=== PATIENT | female | born 1950 | race Caucasian/White ===

== ENCOUNTER 2017-01-09 06:05 | Inpatient (IN) | payer MEDICARE, BC ==
--- NOTE | 2017-01-05 18:28 | HP ---
HISTORY AND PHYSICAL: DATE OF SURGERY: 01/09/17 ATTENDING SURGEON: Dr. Godwin (DICTATED BY CARMEN HATCH) PROCEDURE: Left total hip arthroplasty. CHIEF COMPLAINT: Left hip pain. HISTORY OF PRESENT ILLNESS: Ms. Sherwood is a 66-year-old female with complaints of left hip knee pain secondary to advanced osteoarthritis. She has failed conservative management and has elected to proceed with a left total hip arthroplasty, which is scheduled for 01/09/[address] Godwin. PAST MEDICAL HISTORY: Diabetes and hypertension. PAST SURGICAL HISTORY: 1. Hernia repair. 2. Tonsillectomy. 3. Adenoidectomy. 4. [place] teeth extraction. 5. ORIF of the right ankle. 6. Left breast biopsy. 7. Cataract surgery. CURRENT MEDICATIONS: 1. Lexapro 10 mg once a day. 2. Atenolol 25 mg once a day. 3. Singulair 5 mg once a day. 4. Metformin 500 mg twice a day. ALLERGIES: Questionable LATEX allergy. FAMILY HISTORY: Heart disease and AFib. SOCIAL HISTORY: A 66-year-old female who lives with her parent. She is retired. She does not smoke, use drugs, or alcohol. REVIEW OF SYSTEMS: A complete 14-point review of systems was reviewed with the patient. It was positive for diabetes. PHYSICAL EXAMINATION GENERAL: She is well developed, well nourished, in no acute distress. VITAL SIGNS: She stands 5 feet 3 inches tall, weighs 185 pounds. Her blood pressure is 132/78. Her heart rate is 64. HEENT: Normocephalic, atraumatic. NECK: Supple. No palpable lymph nodes. PULMONARY: The lungs are clear to auscultation. CARDIO: Regular rate and rhythm. Strong S1, S2. ABDOMEN: Soft, nontender, and nondistended. MUSCULOSKELETAL: Left lower extremity, the skin is intact. There is no open wounds or abrasions. Decreased range of motion with internal and external rotation of the left hip. She walks with an antalgic type gait favoring the left leg. Her lower extremity muscle group strengths are intact at 5/5. She has 2+ dorsalis pedis pulses and intact sensation. NEUROLOGICAL: Alert and oriented x3. Cranial nerves II through XII are intact. ASSESSMENT AND PLAN: Ms. Sherwood is a 66-year-old female with complaints of left hip pain secondary to advanced osteoarthritis. She has failed conservative management and has elected to proceed with a left total hip arthroplasty, which is scheduled for 01/09/17. Coumadin, Percocet, and Colace were sent to her pharmacy for postoperative pain control and DVT prophylaxis. She will follow up with Dr. Godwin in 2 weeks after the surgery. CARMEN HATCH [id number]/[facility] #: [id number] MIGUEL
[~2017-01-09 06:05] MED LIST: Buffered Lidocaine 0.9% SYRIN* 5 ML/SYR SYRINGE INTRADERM ONE; Famotidine IV* 10 MG/ML 2 ML (20 mg) IV ONE
[2017-01-09] MEDS ORDERED: Famotidine IV* 10 MG/ML 2 ML (20 mg) ONE (06:08)
[2017-01-09] MEDS ORDERED: ceFAZolin 2 GM PREMIX(*) 2 GM/50 ML BAG IVPB ONE (06:08)
[2017-01-09] MEDS ORDERED: Buffered Lidocaine 0.9% SYRIN* 5 ML/SYR SYRINGE ONE (06:08)
[2017-01-09] MEDS ORDERED: fentaNYL* 50 MCG/ML 2 ML VIAL (100 MCG VIAL) ONE ×2 (07:05→07:57)
[2017-01-09] MEDS ORDERED: Ondansetron INJ* 2 MG/ML VIAL ONE (07:05)
[2017-01-09] MEDS ORDERED: KETAMINE HCL* 50 MG/ML 10 ML VIAL ONE (07:05)
[2017-01-09] MEDS ORDERED: Ketorolac INJ* 30 MG/ML 1 ML VIAL ONE (07:05)
[2017-01-09] MEDS ORDERED: Lidocaine 2% PF * 5 ML VIAL ONE (07:05)
[2017-01-09] MEDS ORDERED: Dexamethasone IV* 4 MG/ML 1 ML (4 MG) ONE (07:05)
[2017-01-09] MEDS ORDERED: Propofol* 10 MG/ML 20 ML BTL IV PUSH ONE (07:05)
[2017-01-09] MEDS ORDERED: Midazolam* 1 MG/ML 5 ML VIAL (5 MG) ONE (07:05)
[2017-01-09] MEDS ORDERED: Cisatracurium* 2 MG/ML MDV 5 ML ONE (07:19)
[2017-01-09] MEDS ORDERED: Bupivacaine 0.5% SDV PF* 30 ML VIAL ONE (07:27)
[2017-01-09] MEDS ORDERED: EPHEDrine (Pressors)* 50 MG/ML VIAL ONE (07:57)
[2017-01-09] MEDS ORDERED: HYDROmorphone* 1 MG/ML 1 ML SYR IV PRN (08:36)
[2017-01-09] MEDS ORDERED: fentaNYL* 50 MCG/ML 2 ML VIAL (100 MCG VIAL) IV PRN (08:36)
[2017-01-09] MEDS ORDERED: Levalbuterol 0.63MG/3ML NEB INH PRN (08:36)
[2017-01-09] MEDS ORDERED: Ondansetron INJ* 2 MG/ML VIAL IV PRN ×2 (08:36→10:08)
[2017-01-09] MEDS ORDERED: DiMENhydriNATE IV* 50 MG/ML VIAL IV PUSH PRN (08:36)
[2017-01-09] MEDS ORDERED: HYDROmorphone* 1 MG/ML 1 ML SYR ONE (09:04)
--- NOTE | 2017-01-09 09:29 | RAD ---
Indication: Left hip replacement. Single view of the pelvis and left hip demonstrates left hip replacement in satisfactory position. IMPRESSION: Left hip replacement in satisfactory position.
[2017-01-09] MEDS ORDERED: Magnesium Hydroxide LIQ* 30 ML UDC PO PRN (10:08)
[2017-01-09] MEDS ORDERED: Acetaminophen TAB* 325 MG PO PRN (10:08)
[2017-01-09] MEDS ORDERED: Morphine INJ* 2 MG/ML 1 ML SYRINGE IV PRN (10:08)
[2017-01-09] MEDS ORDERED: diPHENhydraMINE IV* 50 MG/ML 1 ml VIAL (BENADRYL) IV PRN (10:08)
[2017-01-09] MEDS ORDERED: Ondansetron TAB* 4 MG PO PRN (10:08)
[2017-01-09] MEDS ORDERED: Polyethylene Glycol 3350* 17 GM PACKET PO PRN (10:08)
[2017-01-09] MEDS ORDERED: Bisacodyl SUPP* 10 MG SUPP PR PRN (10:08)
[2017-01-09] MEDS ORDERED: oxyCODONE TAB* 5 MG TAB PO PRN (10:08)
[2017-01-09] MEDS ORDERED: Dextrose 50% Syringe 50 ML* 25 GM/50 ML SYRINGE IV PUSH PRN (10:34)
--- NOTE | 2017-01-09 10:40 | CONSULT ---
Subjective Date of Service: 01/09/17 Interval History: 66 yo F with hx of HTN, DM s/p L ITZEL. Patient seen in PACU, still a bit drowsy from medications/anesthesia but says she is comfortable. No pain presently, no SOB. Reports no ongoing problems prior to her surgery aside from the hip pain. She reports she has been off of Metformin for almost a month because of GI side effects. Says she has been following her BGs at home while off of the medication. Family History: Findings - F - Afib Social History: Findings - No hx of tobacco abuse, no EtOH or drug use Past Medical History: Findings - HTN, DM, allergies Review of Systems - Measurements Intake and Output: Intake and Output Last 24 Hours 01/07/17 01/08/17 01/09/17 01/10/17 06:59 06:59 06:59 06:59 Intake Total 2350 Balance 2350 Intake: IV Fluids 2350 LR 2300 NS 50ML, Cefazolin 2G 50 - Review of Systems Constitutional Symptoms: Negative: Fever Dermatology: Positive: Normal HEENT: Positive: Normal Eyes: Positive: Normal Thyroid: Positive: Normal Pulmonary: Positive: Normal Cardiology: Positive: Normal Gastroenterology: Positive: Normal Genital - Urinary: Positive: Normal Musculoskeletal: Positive: Joint Pain, Joint Stiffness Endocrinology: Positive: Normal Neurology: Positive: Normal Psychiatry: Positive: Normal Objective Active Medications: Acetaminophen (Tylenol Tab*) 650 mg PO Q4H PRN Atenolol (Tenormin Tab*) 25 mg PO QAM [facility] Bisacodyl (Dulcolax Supp*) 10 mg VT DAILY PRN Dimenhydrinate (Dramamine Iv*) 25 mg IV PUSH ONCE PRN Diphenhydramine HCl (Benadryl Iv*) 12.5 mg IV Q6H PRN Docusate Sodium (Colace Cap*) 100 mg PO BID [facility] Enoxaparin Sodium (Lovenox(*)) 30 mg SUBCUT Q24H [facility] Escitalopram Oxalate (Lexapro (Nf)) 10 mg PO BID [facility] Famotidine (Pepcid Iv*) 20 mg IV ONCE ONE Fentanyl Citrate (Fentanyl*) 50 mcg IV Q5M PRN Hydromorphone HCl (Dilaudid Iv*) 0.5 mg IV Q10M PRN Lactated Ringer's (Lactated Ringers 1000 Ml Bag*) 1,000 mls @ 125 mls/hr IV PER RATE [facility] Cefazolin Sodium 1 gm/ Sodium (Chloride) 50 mls @ 200 mls/hr IVPB Q8H [facility] Lactated Ringer's (Lactated Ringers 1000 Ml Bag*) 1,000 mls @ 100 mls/hr IV PER RATE [facility] Lactulose (Lactulose*) 30 ml PO Q6H PRN Levalbuterol HCl (Xopenex 0.63mg/3ml Neb*) 0.63 mg INH ONCE PRN Lidocaine/Sodium Bicarbonate (Buffered Lidocaine 0.9% Syrin*) 0.2 ml INTRADERM ONCE ONE Magnesium Hydroxide (Milk Of Magnesia Liq*) 30 ml PO Q6H PRN Montelukast Sodium (Singulair Tab*) 5 mg PO QPM [facility] Morphine Sulfate (Morphine Inj (Syringe)*) 2 mg IV Q2H PRN Ondansetron HCl (Zofran Inj*) 4 mg IV ONCE PRN Ondansetron HCl (Zofran Inj*) 4 mg IV Q6H PRN Ondansetron HCl (Zofran Tab*) 4 mg PO Q6H PRN Oxycodone HCl (Roxycodone Tab*) 10 mg PO Q4H PRN Oxycodone/Acetaminophen (Percocet 5/325 Tab*) 1 tab PO Q3H PRN Oxycodone/Acetaminophen (Percocet 5/325 Tab*) 2 tab PO Q3H PRN Polyethylene Glycol/Electrolytes (Miralax*) 17 gm PO DAILY PRN Warfarin Sodium (Coumadin Tab(*)) 6 mg PO ONCE@1700 ONE Vital Signs 01/09/17 01/09/17 01/09/17 06:37 10:08 10:15 Temperature 97.9 F 98.1 F Pulse Rate 67 82 83 Respiratory 16 18 12 Rate Blood Pressure 146/72 132/70 129/59 (mmHg) O2 Sat by Pulse 97 98 99 Oximetry Oxygen Devices in Use Now: Nasal Cannula - 4L Appearance: Elderly, F, laying in bed in NAD Eyes: No Scleral Icterus Ears/Nose/Mouth/Throat: - - Dry MM Neck: NL Appearance and Movements; NL JVP Respiratory: Symmetrical Chest Expansion and Respiratory Effort, Clear to Auscultation Cardiovascular: NL Sounds; No Murmurs; No JVD, RRR Abdominal: NL Sounds; No Tenderness; No Distention Lymphatic: No Cervical Adenopathy Extremities: No Edema, - - L hip dressing in place, c/d/i Skin: No Rash or Ulcers Neurological: Alert and Oriented x 3 Lines/Tubes/Other Access: Clean, Dry and Intact Delcid - draining clear, yellow urine Assessment/Plan - Billing 66 yo F with hx of HTN, DM and progressive L hip OA now s/p L ITZEL 1) S/P L ITZEL - management and analgesia as per ortho - Warfarin ordered for tonight 2) HTN - continue home Atenolol 3) DM - patient no longer taking Metformin, will discontinue - monitor BGs qAC and hs and cover with HISS for now 3) Allergies - continue singulair 4) DVT ppx - Warfarin/Lovenox Thank you for this consult, will continue to follow
--- NOTE | 2017-01-09 11:18 | RAD ---
Indication: Postop LEFT total hip replacement. Comparison: January 05, 2017 Technique: Low AP pelvis and proximal femurs. AP LEFT hip and crosstable lateral view LEFT hip. Report: Noncemented LEFT total hip prosthesis in place with normal alignment. Negative for periprosthetic fracture. Lateral soft tissue swelling and subcutaneous emphysema. IMPRESSION: Unremarkable immediate postop appearance of the LEFT total hip prosthesis.
[2017-01-09] MEDS: oxyCODONE/Acetamin 5/325 MG* TAB PO PRN ×3 (12:09→20:44)
[2017-01-09] MEDS: Insulin LISPRO* 1 UNITS UNIT SUBCUT SCH ×2 (12:56→17:10)
[2017-01-09] MEDS: ceFAZolin VIAL(*) 1 GM in NS 0.9% 50 ML* 50 ML IVPB SCH (16:11)
[2017-01-09] MEDS ORDERED: Warfarin TAB(*) 6 MG PO ONE (17:00)
[2017-01-09] MEDS: Montelukast Sodium TAB* 5 MG PO SCH (17:51)
[2017-01-09] MEDS: Docusate CAP* 100 MG PO SCH (20:44)
[2017-01-09] MEDS: PTO: Escitalopram (NF) 10 MG TAB PO SCH (20:47)
[2017-01-09] MEDS ORDERED: metFORMIN* 500 MG TAB PO SCH (21:00)
[2017-01-10] MEDS: oxyCODONE/Acetamin 5/325 MG* TAB PO PRN ×5 (00:20→20:24)
[2017-01-10] MEDS: ceFAZolin VIAL(*) 1 GM in NS 0.9% 50 ML* 50 ML IVPB SCH ×2 (00:20→08:03)
--- NOTE | 2017-01-10 04:48 | OP ---
DATE OF OPERATION: 01/09/17 - ROOM #342 DATE OF : 50 ATTENDING SURGEON: Sandy Godwin MD PLASTICS ENGINEER: CARMEN Dwyer. Ms. Branch did help throughout the procedure with preparation of the leg, wound retraction, manipulation of the hip, and wound closure. ANESTHESIOLOGIST: Dr. Brambila. ANESTHESIA: General. PRE-OP DIAGNOSIS: Severe end-stage degenerative osteoarthritis of the left hip joint. POST-OP DIAGNOSIS: Severe end-stage degenerative osteoarthritis of the left hip joint. OPERATIVE PROCEDURE: Left total hip arthroplasty. COMPLICATIONS: None. SPECIMENS: Femoral head and acetabular reaming sent to Pathology. EBL: 200 cc. HARDWARE USED: This is an uncemented Kine[employer] total hip hardware. For the cup, a Tritanium hemispherical cluster hole shell 48C, one 20 mm and one 25 mm cancellous bone screw was used. A Trident X3 0-degree polyethylene insert, 32Z was used. For the stem an Accolate TMZF size 2.5 with a 132-degree neck angle, for the head a Biolox delta [id number] femoral head 32 +0. BRIEF HISTORY/INDICATION: Ms. Sherwood is a 66-year-old female with years of increasingly severe left hip pain. Radiographs showed severe end-stage arthritis. She failed conservative treatment and elected to undergo left total hip arthroplasty. Informed consent was obtained from the patient. She understood the risks of procedure included but were not limited to bleeding, infection, damage to nearby structures, continued pain, need for further surgery, intraoperative fracture, nerve palsy, hardware failure or loosening, dislocation, leg length discrepancies, stroke, heart attack, blood clot, and . She wished to proceed. INTRAOPERATIVE FINDINGS: Intraoperatively, the patient was noted to have severe end-stage arthritis. She has significant osteophyte formation along the entire acetabulum and femoral head. DESCRIPTION OF PROCEDURE: Ms. Sherwood was identified in the preanesthesia unit. Her left lower extremity was marked as the correct operative site. Informed consent was signed and placed in the chart. The patient was taken to the operating room and placed under general anesthesia. A Delcid catheter was placed. The patient was placed in the right lateral decubitus position on the peg board. All bony prominences were well padded. Delcid catheter was placed. Left lower extremity was prepped and draped in the usual sterile fashion. Preop time-out was made to correctly identify the patient's side and site. Appropriate perioperative antibiotics were given within 1 hour of incision. A 12-cm posterior hip incision was made with a 10-blade. Electrocautery was used to dissect down to the lateral fascial layer. New 10-blade was used to incise the lateral fascial layer in line with the skin incision. Charnley retractor was placed. Posterior aspect of the hip joint was visualized. The piriformis and conjoint tendons were elevated off the posterolateral femur. These were tagged with two #5 Ethibonds. Electrocautery was then used to make a standard posterolateral capsular flap and this was also tagged with two #5 Ethibonds. The hip was carefully dislocated. Lesser troch of the femoral head measured 55 mm. Oscillating saw was used to make the appropriate femoral neck cut. The femoral head was sent to Pathology. After appropriate placement of retractors, the acetabulum was visualized. Electrocautery was used to remove soft tissue from the cotyloid notch and a significant amount of osteophyte formation was noted. Long-handle knife was used to remove remaining labrum from the acetabular rim. The acetabulum was sequentially reamed to a size 47. It was noted that the acetabular bone was osteopenic. A bleeding bone bed was obtained. Size 47 trial was placed and had good stability. A 48C Tritanium cluster hole shell was chose as the final implant. This was impacted into the acetabulum without difficulty. Good stability was obtained. Appropriate anteversion and abduction angle were noted. One 20-mm and one 25-mm screw placed in the superior posterior quadrant for extra stability. A Trident X3 0-degree polyethylene liner was impacted into the acetabular cup. Liner was noted to be stable. Attention was next turned to preparation of the proximal femur. A canal fiber was used to enter the proximal femur. The femur was sequentially broached up to a size 2.5. Size 2.5 broach had good stability and anteversion. A 132- degree neck trial was used. A 32 +0 head trial was placed. Lesser trochanter of the femoral head measured approximately 55 mm. The hip was reduced and taken through a range of motion. The hip was stable in all positions. There was good soft tissue tension and appropriate leg lengths. All trials were carefully removed. The implant chosen was an Accolade TMZF size 2.5 with a 132-degree neck angle. This was impacted to the femoral canal without difficulty. A 32 +0 Biolox delta ceramic head was chosen. This was impacted onto the femoral neck without difficulty. The hip was reduced and taken through a range of motion. The hip was stable in all positions. There was good soft tissue tension. Previously tagged capsules and tendons were reapproximated to the posterolateral femur through two trochanteric drill holes. The lateral fascial layer was closed using interrupted #1 Vicryl. The rest of the incision was closed in a layered fashion using 0 and 2-0 Vicryls. Skin was closed using running 3-0 Monocryl and Dermabond. Sterile Adaptic, 4x4s, and paper tape were used to cover the incision. The patient's anesthesia was reversed without difficulty. She was taken to the PACU in stable condition. Intended weightbearing will be weightbearing as tolerated. Intended DVT prophylaxis will be coumadin with a lovenox bridge. [id number]/[facility] #: [id number] MIGUEL
[2017-01-10 06:24] LABS: Hematocrit 27 % (35-47); Hemoglobin 8.5 g/dl (12.0-16.0)
[2017-01-10 06:39] LABS: BUN/Creatinine Ratio 15.8 (8-20); Calcium 8.3 mg/dL (8.6-10.3); EGFR African American 97.9 (>60); EGFR Non-African American 76.1 (>60); Potassium 4.6 mmol/L (3.5-5.0)
[2017-01-10] MEDS ORDERED: Enoxaparin(*) 30 MG/0.3 ML SYR SUBCUT SCH (08:00)
[2017-01-10] MEDS: Insulin LISPRO* 1 UNITS UNIT SUBCUT SCH ×3 (08:06→17:05)
[2017-01-10] MEDS: Docusate CAP* 100 MG PO SCH ×2 (08:49→20:24)
[2017-01-10] MEDS: Atenolol TAB* 25 MG PO SCH (08:49)
--- NOTE | 2017-01-10 09:06 | PN ---
Progress Note - Progress Note SOAP: Subjective: []Patient seen OOB in chair. Denies dizziness but feels "dopey" from the pain medication. Denies chest pain or SOB. Hoping to go home by sunday. Objective: [] Vital Signs Temp 97.4 F 01/10/17 07:27 Pulse 75 01/10/17 07:27 Resp 18 01/10/17 08:49 BP 114/64 01/10/17 07:27 Pulse Ox 96 01/10/17 08:06 Intake & Output 01/09/17 01/10/17 01/10/17 18:59 06:59 18:59 Intake Total 2690 4910 1067 Output Total 125 3350 Balance 2565 1560 1067 Intake: IV Fluids 2450 990 1067 LR 2400 990 1067 NS 50ML, Cefazolin 2G 50 Oral 240 3920 Output: Delcid 125 3350 Other: # Bowel Movements 0 Laboratory Results - last 24 hr 01/09/17 01/09/17 01/09/17 10:10 11:52 16:42 Hgb Hct INR (Anticoag Therapy) Sodium Potassium Chloride Carbon Dioxide Anion Gap BUN Creatinine Est GFR ( Amer) Est GFR (Non-Af Amer) BUN/Creatinine Ratio Glucose POC Glucose (mg/dL) 185 H 178 H 202 H Calcium 01/10/17 01/10/17 01/10/17 05:51 05:51 05:51 Hgb 8.5 L Hct 27 L INR (Anticoag Therapy) 1.05 Sodium 132 L Potassium 4.6 Chloride 102 Carbon Dioxide 25 Anion Gap 5 BUN 12 Creatinine 0.76 Est GFR ( Amer) 97.9 Est GFR (Non-Af Amer) 76.1 BUN/Creatinine Ratio 15.8 Glucose 139 H POC Glucose (mg/dL) Calcium 8.3 L 01/10/17 07:43 Hgb Hct INR (Anticoag Therapy) Sodium Potassium Chloride Carbon Dioxide Anion Gap BUN Creatinine Est GFR ( Amer) Est GFR (Non-Af Amer) BUN/Creatinine Ratio Glucose POC Glucose (mg/dL) 140 H Calcium Left hip dressings are dry and intact calf non tender and soft +DF/PF left ankle sensation intact Assessment: []s/p Left total hip arthroplasty POD #1 Plan: []PT/OT WBAT LLE Coumadin w Lovenox bridge 8 mg today Home with VNS sunday
[2017-01-10] MEDS: PTO: Escitalopram (NF) 10 MG TAB PO SCH (12:54)
[2017-01-10] MEDS ORDERED: Warfarin TAB(*) 4 MG PO ONE (17:00)
[2017-01-10] MEDS: Montelukast Sodium TAB* 5 MG PO SCH (18:19)
--- NOTE | 2017-01-10 18:51 | PN ---
Subjective Date of Service: 01/10/17 Interval History: Patient seen and examined at bedside. She reports good pain control. Denies fever/chills, CP, SOB, n/v. Patient reports participating in PT/OT and doing well. Is hopeful to go home Sunday. Family History: Findings - F - Afib Social History: Findings - No hx of tobacco abuse, no EtOH or drug use Past Medical History: Findings - HTN, DM, allergies Objective Active Medications: Acetaminophen (Tylenol Tab*) 650 mg PO Q4H PRN PRN Reason: PAIN OR TEMPERATURE Atenolol (Tenormin Tab*) 25 mg PO QAM [facility] Last Admin: 01/10/17 08:49 Dose: 25 mg Bisacodyl (Dulcolax Supp*) 10 mg SD DAILY PRN PRN Reason: constipation Dextrose (D50w Syringe 50 Ml*) 12.5 gm IV PUSH .FOR FS < 60 - SS PRN PRN Reason: FS < 60 Diphenhydramine HCl (Benadryl Iv*) 12.5 mg IV Q6H PRN PRN Reason: PRURITIS Docusate Sodium (Colace Cap*) 100 mg PO BID [facility] Last Admin: 01/10/17 08:49 Dose: 100 mg Enoxaparin Sodium (Lovenox(*)) 30 mg SUBCUT Q24H [facility] Last Admin: 01/10/17 08:08 Dose: 30 mg Escitalopram Oxalate (Lexapro (Nf)) 5 mg PO BID [facility] Lactated Ringer's (Lactated Ringers 1000 Ml Bag*) 1,000 mls @ 100 mls/hr IV PER RATE [facility] Last Admin: 01/09/17 21:55 Dose: 100 mls/hr Insulin Human Lispro (Humalog*) 0 - 10 units SUBCUT AC [facility] PRN Reason: Protocol Last Admin: 01/10/17 17:05 Dose: Not Given Lactulose (Lactulose*) 30 ml PO Q6H PRN PRN Reason: constipation Magnesium Hydroxide (Milk Of Magnesia Liq*) 30 ml PO Q6H PRN PRN Reason: constipation Montelukast Sodium (Singulair Tab*) 5 mg PO QPM [facility] Last Admin: 01/10/17 18:19 Dose: 5 mg Morphine Sulfate (Morphine Inj (Syringe)*) 2 mg IV Q2H PRN PRN Reason: PAIN Ondansetron HCl (Zofran Inj*) 4 mg IV Q6H PRN PRN Reason: nausea Ondansetron HCl (Zofran Tab*) 4 mg PO Q6H PRN PRN Reason: NAUSEA Oxycodone HCl (Roxycodone Tab*) 10 mg PO Q4H PRN PRN Reason: SEVERE PAIN Oxycodone/Acetaminophen (Percocet 5/325 Tab*) 1 tab PO Q3H PRN PRN Reason: PAIN - MODERATE Last Admin: 01/10/17 15:44 Dose: 1 tab Oxycodone/Acetaminophen (Percocet 5/325 Tab*) 2 tab PO Q3H PRN PRN Reason: PAIN - MODERATE Last Admin: 01/10/17 04:22 Dose: 2 tab Polyethylene Glycol/Electrolytes (Miralax*) 17 gm PO DAILY PRN PRN Reason: Constipation Vital Signs 01/09/17 01/09/17 01/09/17 19:20 19:24 20:00 Temperature 98.1 F Pulse Rate 87 Respiratory 16 18 16 Rate Blood Pressure 122/59 (mmHg) O2 Sat by Pulse 97 Oximetry 01/09/17 01/09/17 01/09/17 20:44 22:44 23:33 Temperature 98.5 F Pulse Rate 79 Respiratory 20 20 16 Rate Blood Pressure 106/49 (mmHg) O2 Sat by Pulse 98 Oximetry 01/10/17 01/10/17 01/10/17 00:20 02:17 02:20 Temperature Pulse Rate Respiratory 16 18 Rate Blood Pressure (mmHg) O2 Sat by Pulse 96 Oximetry 01/10/17 01/10/17 01/10/17 03:40 04:22 06:22 Temperature 97.7 F Pulse Rate 80 Respiratory 14 18 18 Rate Blood Pressure 114/57 (mmHg) O2 Sat by Pulse 99 Oximetry 01/10/17 01/10/17 01/10/17 07:27 08:00 08:06 Temperature 97.4 F Pulse Rate 75 Respiratory 16 18 Rate Blood Pressure 114/64 (mmHg) O2 Sat by Pulse 96 96 Oximetry 01/10/17 01/10/17 01/10/17 08:49 10:49 11:39 Temperature 98.3 F Pulse Rate 75 Respiratory 18 18 16 Rate Blood Pressure 130/62 (mmHg) O2 Sat by Pulse 97 Oximetry 0601/10/17 01/10/17 15:44 15:49 17:44 Temperature 98.8 F Pulse Rate 92 Respiratory 18 20 18 Rate Blood Pressure 142/62 (mmHg) O2 Sat by Pulse 97 Oximetry Oxygen Devices in Use Now: None - 4L Appearance: Female patient, sitting up in bed, NAD Eyes: PERRLA Ears/Nose/Mouth/Throat: Mucous Membranes Moist Neck: NL Appearance and Movements; NL JVP Respiratory: Symmetrical Chest Expansion and Respiratory Effort, Clear to Auscultation Cardiovascular: NL Sounds; No Murmurs; No JVD, RRR Abdominal: NL Sounds; No Tenderness; No Distention Extremities: No Edema, - - left hip dressing c/d/i, distally nvi, 2+ distal pulses Skin: No Rash or Ulcers Neurological: Alert and Oriented x 3, NL Muscle Strength and Tone Lines/Tubes/Other Access: Clean, Dry and Intact Peripheral IV Nutrition: Taking PO's Result Diagrams: 01/10/17 05:51 01/10/17 05:51 Assess/Plan/Problems-Billing 66 yo F with hx of HTN, DM and progressive L hip OA now s/p L ITZEL - Patient Problems (1) History of total left hip arthroplasty Code(s): Z96.642 - PRESENCE OF LEFT ARTIFICIAL HIP JOINT Comment: POD #1 Management per ortho HH stable PT/OT (2) HTN (hypertension) Code(s): I10 - ESSENTIAL (PRIMARY) HYPERTENSION Comment: Normotensive Continue home atenolol. (3) Diabetes mellitus Code(s): E11.9 - TYPE 2 DIABETES MELLITUS WITHOUT COMPLICATIONS Comment: Controlled. Continue FSBG ACHS with Lispro SSI Patient no longer taking home metformin (4) Seasonal allergies Code(s): J30.2 - OTHER SEASONAL ALLERGIC RHINITIS Comment: Continue singulair. (5) DVT prophylaxis Comment: Per ortho Continue enoxaparin. Status and Disposition: Inpatient admission. Dispo per ortho. Hospitalist co-medical management.
[2017-01-10] MEDS: CMCS Escitalopram (NF) 5 MG TAB PO SCH (20:24)
[2017-01-11] MEDS: oxyCODONE/Acetamin 5/325 MG* TAB PO PRN ×3 (05:11→12:23)
[2017-01-11 06:11] LABS: Hematocrit 27 % (35-47); Hemoglobin 8.5 g/dl (12.0-16.0)
--- NOTE | 2017-01-11 07:40 | PN ---
Progress Note - Progress Note SOAP: Subjective: Pt. alert, pain controlled. Objective: LLE - dressing changed, inc c/d/i. thigh soft, distally nvi. Vital Signs: Temp Pulse Resp BP Pulse Ox 98.7 F 90 18 142/67 94 01/11/17 03:19 01/11/17 03:19 01/11/17 07:11 01/11/17 03:19 01/11/17 03:19 Laboratory Results - last 24 hr 01/10/17 01/10/17 01/10/17 07:43 12:23 17:05 Hgb Hct INR (Anticoag Therapy) POC Glucose (mg/dL) 140 H 133 H 140 H 01/11/17 01/11/17 05:44 05:44 Hgb 8.5 L Hct 27 L INR (Anticoag Therapy) 1.89 H POC Glucose (mg/dL) Assessment: 66 yo F pod 2 s/p LTKA Plan: wbat lle pt/ot 2 mg coumadin issac, d/c lovenox plan d/c to home this afternoon
[2017-01-11] MEDS: Insulin LISPRO* 1 UNITS UNIT SUBCUT SCH ×2 (07:46→12:19)
[2017-01-11] MEDS: CMCS Escitalopram (NF) 5 MG TAB PO SCH (08:08)
[2017-01-11] MEDS: Atenolol TAB* 25 MG PO SCH (08:08)
[2017-01-11] MEDS: Docusate CAP* 100 MG PO SCH (08:08)
[2017-01-11 12:36] VITALS: BP 110/55
[2017-01-11] MEDS ORDERED: Warfarin TAB(*) 2 MG PO ONE (13:00)
--- NOTE | 2017-01-11 22:31 | DS ---
DISCHARGE SUMMARY: DATE OF ADMISSION: 01/09/17 DATE OF DISCHARGE: 01/11/17 ATTENDING PHYSICIAN: Dr. Sandy Godwin. ADMISSION DIAGNOSIS: Severe end-stage degenerative osteoarthritis of the left hip. DISCHARGE DIAGNOSIS: Severe end-stage degenerative osteoarthritis of the left hip. SURGERY PERFORMED: Left total hip arthroplasty. HOSPITAL COURSE: The patient is a 66-year-old female with years of increasingly severe left hip kayode n. Her x-rays revealed severe end-stage osteoarthritis. She failed conservative management and abrahan cted to proceed with surgical intervention. She was taken to the operating room under the care of Dr Sergio Godwin on the date of 01/09/17 for the aforementioned procedure. She tolerated the procedur e well and left the operating room in stable condition. Postoperatively, the patient progressed syl y well with her physical therapy and occupational therapy goals. She had no postoperative complicat ions. It was felt she was medically and orthopedically stable for discharge to home on the date of 01/11/17. CONDITION ON DISCHARGE: Temp 99.1. Vital signs are stable. Her left hip incision is healing witho ut evidence of infection. Her calf is soft and nontender and her neurovascular status is grossly in tact. PLAN: Discharge to home. She will continue with her physical therapy exercises and will maintain t otal hip precautions as learned. She will continue with Coumadin for her anticoagulation and will t dheeraj 2 mg today, Sunday, January 11; 2 mg, January 12; 2 mg, January 13; 2 mg, January 14. She will h ave VNS draw blood for an INR level January 15, with dosage to follow from the office. She h as a prescription of Percocet 5/325 mg to use for pain as needed. She will follow up with Dr. Godwin in 10 to 14 days and will call the office with any noted chest pain, shortness of breath, fever, ch ills, wound issues including drainage, increased swelling, increased pain, calf pain or swelling. CARMEN MCMULLEN [id number]/[facility] #: [id number]
== END 2017-01-11 13:30 | disposition home health service (06) | DRG 470 ==
LOC: AA 06:05 → SSU 11:21
PROVIDERS: ADMIT Orthopaedic Surgery Adult Reconstructive Orthopaedic Surgery; ATTEND Orthopaedic Surgery Adult Reconstructive Orthopaedic Surgery
PROC: 0SRB04A Replacement of Left Hip Joint with Ceramic on Polyethylene Synthetic Substitute, Uncemented, Open Approach (ICD-10-PCS; principal; 2017-01-09 07:30)
DX: M16.12 Unilateral primary osteoarthritis, left hip (principal); I10 Essential (primary) hypertension; E11.9 Type 2 diabetes mellitus without complications; Z98.49 Cataract extraction status, unspecified eye; Z91.040 Latex allergy status; Z82.49 Family history of ischemic heart disease and other diseases of the circulatory system; J30.2 Other seasonal allergic rhinitis; F41.9 Anxiety disorder, unspecified; J45.909 Unspecified asthma, uncomplicated; M25.752 Osteophyte, left hip
CPT/HCPCS: 36415; 72170; 80048; 85014; 85018; 85610; 88304; 88311; 94760; A9270-GY; C1713; C1776; J0690; J1100; J1170; J1650; J1885; J2250; J2405; J2704; J3010

== ENCOUNTER 2020-10-03 08:26 | Inpatient (IN) ==
[2020-10-03] MEDS ORDERED: NS 0.9% 1000 ml BAG 1,000 ML IV ONE ×2 (08:47→10:21)
[2020-10-03 09:46] LABS: ABS Monocytes 0.5 10^3/ul (0-0.8); ABS Neutrophils 10.8 10^3/ul (1.5-7.7); Hematocrit 22 % (35-47); Hemoglobin 7.3 g/dL (12.0-16.0); Mean Corpuscular HGB Conc 33 g/dL (31-36); Mean Corpuscular Hemoglobin 29 pg (27-31); Mean Corpuscular Volume 88 fL (80-97); Mean Platelet Volume 8.7 fL (7.4-10.4); Platelet Count 256 10^3/uL (150-450); Red Blood Count 2.54 10^6 /uL (3.70-4.87); Red Cell Distribution Width 14 % (10-15); White Blood Count 13.4 10^3/uL (3.5-10.8)
[2020-10-03 09:54] LABS: Activated Partial Thrombo Time 23.2 seconds (26.0-38.0); INR 1.14 (0.82-1.09)
[2020-10-03 10:05] LABS: Albumin 3.5 g/dL (3.2-5.2); Albumin/Globulin Ratio 1.1 (1-3); BUN/Creatinine Ratio 23.3 (8-20); C Reactive Protein 10.01 mg/L (<8.01); Calcium 8.4 mg/dL (8.6-10.3); EGFR African American 78.9 (>60); EGFR Non-African American 65.2 (>60); Globulin 3.1 g/dL (2-4); Total Bilirubin 0.4 mg/dL (0.2-1.0); Total Protein 6.6 g/dL (6.4-8.9)
[2020-10-03 10:07] LABS: Troponin I 0.01 ng/mL (<0.03)
[2020-10-03] MEDS ORDERED: Iodixanol (CONTRAST) 320 MG/ML 100 ML SDV IV ONE (10:07)
[2020-10-03 10:09] LABS: Potassium 5.5 mmol/L (3.5-5.0)
[2020-10-03] MEDS ORDERED: Morphine 4 MG/ML VIAL (1 ml) IV ONE (10:36)
[2020-10-03] MEDS ORDERED: Ondansetron 4 mg VIAL 2 MG/ML 2 ml VIAL IV ONE (10:36)
[2020-10-03] MEDS ORDERED: Ondansetron 4 mg VIAL 2 MG/ML 2 ml VIAL IV PRN (12:02)
[2020-10-03] MEDS ORDERED: Dextrose 50% Syringe 50 ml 25 GM/50 ML SYRINGE IV PUSH PRN (12:48)
[2020-10-03] MEDS ORDERED: NS 0.9% 1000 ml BAG 1,000 ML IV SCH (13:00)
[2020-10-03] MEDS: Heparin 5000 UNITS/ML 1 mL VIAL SUBCUT SCH ×2 (15:13→21:23)
[2020-10-03 17:17] LABS: Hematocrit 17 % (35-47); Hemoglobin 5.6 g/dL (12.0-16.0)
[2020-10-03 17:29] LABS: BUN/Creatinine Ratio 25.6 (8-20); Calcium 7.4 mg/dL (8.6-10.3); EGFR African American 88.3 (>60); Potassium 4.5 mmol/L (3.5-5.0)
[2020-10-03 20:35] LABS: Urine Appearance Cloudy; Urine Bilirubin Negative (Negative); Urine Blood 3+ (Negative); Urine Color Yellow; Urine Glucose 3+(>=500 mg/dL) (Negative); Urine Ketones Trace (Negative); Urine Nitrite Negative (Negative); Urine Protein 1+(30 mg/dL) (Negative); Urine Specific Gravity 1.027 (1.010-1.030); Urine Urobilinogen Negative (Negative)
[2020-10-03 20:41] LABS: Urine Bacteria Absent (Absent); Urine Red Blood Cell 3+(>10/hpf) (Absent); Urine Squamous Epithelial Cell Present (Absent); Urine White Blood Cell 3+(>20/hpf) (Absent)
[2020-10-04] MEDS: Heparin 5000 UNITS/ML 1 mL VIAL SUBCUT SCH ×2 (06:02→12:59)
[2020-10-04 08:51] LABS: ABS Eosinophils 0.1 10^3/ul (0-0.6); ABS Lymphocytes 2.3 10^3/ul (1.0-4.8); ABS Monocytes 0.7 10^3/ul (0-0.8); ABS Neutrophils 7.4 10^3/ul (1.5-7.7); Eosinophil % 0.8 %; Hematocrit 29 % (35-47); Hemoglobin 9.5 g/dL (12.0-16.0); Lymphocyte % 22.2 %; Mean Corpuscular HGB Conc 33 g/dL (31-36); Mean Corpuscular Hemoglobin 29 pg (27-31); Mean Corpuscular Volume 87 fL (80-97); Mean Platelet Volume 8.4 fL (7.4-10.4); Platelet Count 150 10^3/uL (150-450); Red Blood Count 3.28 10^6 /uL (3.70-4.87); Red Cell Distribution Width 15 % (10-15); White Blood Count 10.5 10^3/uL (3.5-10.8)
[2020-10-04 09:08] LABS: BUN/Creatinine Ratio 23.3 (8-20); Calcium 7.4 mg/dL (8.6-10.3); EGFR African American 119.6 (>60); EGFR Non-African American 98.8 (>60); Potassium 4.1 mmol/L (3.5-5.0)
[2020-10-04 11:49] VITALS: BP 118/64
== END 2020-10-04 15:00 | disposition home or self-care (01) | DRG 744 ==
LOC: ED 08:26 → MEDTELE 12:55
PROVIDERS: ADMIT Internal Medicine; ATTEND Internal Medicine

== ENCOUNTER 2021-08-02 13:42 | Observation (INO) ==
[2021-08-03] MEDS: Enoxaparin 40 MG/0.4 ML SYR SUBCUT SCH ×2 (01:26→21:19)
[2021-08-03] MEDS ORDERED: Dextrose 50% Syringe 50 ml 25 GM/50 ML SYRINGE IV PUSH PRN (01:43)
[2021-08-03 07:00] LABS: ABS Lymphocytes 0.5 10^3/ul (1.0-4.8); ABS Monocytes 0.6 10^3/ul (0-0.8); ABS Neutrophils 4.9 10^3/ul (1.5-7.7); Eosinophil % 0.7 %; Hematocrit 35 % (35-47); Hemoglobin 12.1 g/dL (12.0-16.0); Lymphocyte % 7.9 %; Mean Corpuscular HGB Conc 35 g/dL (31-36); Mean Corpuscular Hemoglobin 31 pg (27-31); Mean Corpuscular Volume 91 fL (80-97); Mean Platelet Volume 7.6 fL (7.4-10.4); Platelet Count 229 10^3/uL (150-450); Red Blood Count 3.86 10^6 /uL (3.70-4.87); Red Cell Distribution Width 14 % (10-15); White Blood Count 6.1 10^3/uL (3.5-10.8)
[2021-08-03 07:18] LABS: Albumin/Globulin Ratio 1.5 (1-3); Calcium 9.3 mg/dL (8.6-10.3); Globulin 2.7 g/dL (2-4); Magnesium 1.7 mg/dL (1.9-2.7); Potassium 3.9 mmol/L (3.5-5.0); Total Bilirubin 0.7 mg/dL (0.2-1.0); Total Protein 6.7 g/dL (6.4-8.9); eGFR CKD-EPI 99.7 (>60)
[2021-08-03 11:46] LABS: Urine Appearance Cloudy; Urine Bilirubin Negative (Negative); Urine Blood Negative (Negative); Urine Color Yellow; Urine Glucose Negative (Negative); Urine Ketones 1+ (Negative); Urine Nitrite Negative (Negative); Urine Protein Negative (Negative); Urine Specific Gravity 1.009 (1.002-1.030); Urine Urobilinogen Negative (Negative)
[2021-08-04] MEDS: Aspirin EC 81 mg TAB.EC (enteric coated) PO SCH (08:22)
[2021-08-04] MEDS ORDERED: HYDROcodone/ACETAMIN 5/325 mg TAB PO PRN (08:24)
[2021-08-04 08:56] LABS: Calcium 9.2 mg/dL (8.6-10.3); Magnesium 1.7 mg/dL (1.9-2.7); Potassium 4.5 mmol/L (3.5-5.0); eGFR CKD-EPI 93.4 (>60)
[2021-08-04] MEDS ORDERED: Senna TAB 8.6 mg TAB PO PRN (10:09)
[2021-08-04] MEDS ORDERED: Polyethylene Glycol 3350 17 GM PACKET PO PRN (10:09)
[2021-08-04] MEDS: Enoxaparin 40 MG/0.4 ML SYR SUBCUT SCH (22:33)
[2021-08-05] MEDS: Aspirin EC 81 mg TAB.EC (enteric coated) PO SCH (09:10)
[2021-08-05 12:02] VITALS: BP 146/81
== END 2021-08-05 13:54 | disposition swing bed (61) ==
LOC: EDHOLD 13:42 → ED 13:42 → SUATTDRO 23:00 → SSU 08-03 01:20
PROVIDERS: ADMIT Internal Medicine; ATTEND Internal Medicine

== ENCOUNTER 2021-08-05 14:23 | Inpatient (IN) ==
[2021-08-05] MEDS ORDERED: Dextrose 50% Syringe 50 ml 25 GM/50 ML SYRINGE IV PUSH PRN (18:30)
[2021-08-05] MEDS ORDERED: HYDROcodone/ACETAMIN 5/325 mg TAB PO PRN (18:31)
[2021-08-05] MEDS ORDERED: Polyethylene Glycol 3350 17 GM PACKET PO PRN (18:31)
[2021-08-06] MEDS: Multivitamins/Minerals TAB PO SCH (08:21)
[2021-08-06] MEDS: Aspirin EC 81 mg TAB.EC (enteric coated) PO SCH (08:22)
[2021-08-07] MEDS: Aspirin EC 81 mg TAB.EC (enteric coated) PO SCH (09:17)
[2021-08-07] MEDS: Multivitamins/Minerals TAB PO SCH (09:18)
[2021-08-08] MEDS: Aspirin EC 81 mg TAB.EC (enteric coated) PO SCH (08:07)
[2021-08-08] MEDS: Multivitamins/Minerals TAB PO SCH (08:07)
[2021-08-09] MEDS: Aspirin EC 81 mg TAB.EC (enteric coated) PO SCH (10:31)
[2021-08-09] MEDS: Multivitamins/Minerals TAB PO SCH (10:31)
[2021-08-10] MEDS: Aspirin EC 81 mg TAB.EC (enteric coated) PO SCH (09:44)
[2021-08-10] MEDS: Multivitamins/Minerals TAB PO SCH (09:45)
[2021-08-10] MEDS ORDERED: Gadoteridol (CONTRAST) 279.3 MG/ML 10 ML IV ONE (14:32)
[2021-08-10 20:11] LABS: CRP High Sensitivity 6.99 mg/L (<2.00)
[2021-08-10 20:13] LABS: Rapid COVID-19 Molecular Undetected (Undetected)
[2021-08-10 20:51] LABS: TSH Ultra Thyroid Stim Horm 1.92 mcIU/mL (0.34-5.60)
[2021-08-11 07:36] VITALS: BP 136/80
[2021-08-11] MEDS: Multivitamins/Minerals TAB PO SCH (07:38)
[2021-08-11] MEDS: Aspirin EC 81 mg TAB.EC (enteric coated) PO SCH (07:38)
[2021-08-11] MEDS ORDERED: Cyanocobalamin INJ 1,000 MCG/ML VIAL 1 ML VIAL IM ONE (08:23)
== END 2021-08-11 11:10 | DRG 563 ==
LOC: SUATTDRO 14:43 → SSU 14:43
PROVIDERS: ADMIT Internal Medicine; ATTEND Internal Medicine

== ENCOUNTER 2021-11-27 15:59 | Inpatient (IN) ==
[2021-11-27] MEDS ORDERED: Lactated Ringers 1000 ml BAG 1,000 ML IV ONE (16:46)
[2021-11-27 17:30] LABS: ABS Eosinophils 0.1 10^3/ul (0-0.6); ABS Lymphocytes 0.7 10^3/ul (1.0-4.8); ABS Monocytes 0.7 10^3/ul (0-0.8); Eosinophil % 0.9 %; Hematocrit 37 % (35-47); Lymphocyte % 8.8 %; Mean Corpuscular HGB Conc 33 g/dL (31-36); Mean Corpuscular Hemoglobin 29 pg (27-31); Mean Corpuscular Volume 89 fL (80-97); Platelet Count 283 10^3/uL (150-450); Red Blood Count 4.11 10^6 /uL (3.70-4.87); Red Cell Distribution Width 14 % (10-15); White Blood Count 7.5 10^3/uL (3.5-10.8)
[2021-11-27 18:01] LABS: Albumin 4.1 g/dL (3.2-5.2); Albumin/Globulin Ratio 1.5 (1-3); C Reactive Protein 4.39 mg/L (<8.01); Calcium 9.6 mg/dL (8.6-10.3); Globulin 2.8 g/dL (2-4); Potassium 4.1 mmol/L (3.5-5.0); Total Bilirubin 0.6 mg/dL (0.2-1.0); Total Protein 6.9 g/dL (6.4-8.9); eGFR CKD-EPI 100.7 (>60)
[2021-11-27] MEDS ORDERED: Ondansetron 4 mg VIAL 2 MG/ML 2 ml VIAL IV ONE (20:21)
[2021-11-27 23:52] LABS: Potassium 3.9 mmol/L (3.5-5.0); eGFR CKD-EPI 99.7 (>60)
[2021-11-28 06:18] LABS: Calcium 8.8 mg/dL (8.6-10.3); eGFR CKD-EPI 98.4 (>60)
[2021-11-28] MEDS ORDERED: Ondansetron 4 mg VIAL 2 MG/ML 2 ml VIAL IV ONE (07:25)
[2021-11-28] MEDS ORDERED: Metoclopramide 5 MG/ML VIAL (10 mg) IV ONE (09:35)
[2021-11-28] MEDS ORDERED: Ondansetron 4 mg VIAL 2 MG/ML 2 ml VIAL IV PRN (11:56)
[2021-11-29 06:44] LABS: Calcium 9.1 mg/dL (8.6-10.3); Magnesium 1.6 mg/dL (1.9-2.7); Potassium 3.8 mmol/L (3.5-5.0); eGFR CKD-EPI 99.7 (>60)
[2021-11-29] MEDS: Cholecalciferol (VIT D3) 1,000 unit TAB PO SCH (09:10)
[2021-11-29] MEDS: Vitamin THERAPEUTIC TAB PO SCH (09:14)
[2021-11-29] MEDS: Pentoxifylline CR 400 mg TAB 400 MG PO SCH (09:14)
[2021-11-29 16:37] LABS: TSH Ultra Thyroid Stim Horm 1.1 mcIU/mL (0.34-5.60)
[2021-11-29] MEDS ORDERED: Gadoteridol (CONTRAST) 279.3 MG/ML 10 ML IV ONE (19:58)
[2021-11-29] MEDS: Heparin 5000 UNITS/ML 1 mL VIAL SUBCUT SCH (22:34)
[2021-11-30] MEDS: Heparin 5000 UNITS/ML 1 mL VIAL SUBCUT SCH ×4 (05:04→20:59)
[2021-11-30 05:10] LABS: ABS Eosinophils 0.2 10^3/ul (0-0.6); ABS Lymphocytes 0.6 10^3/ul (1.0-4.8); ABS Monocytes 0.7 10^3/ul (0-0.8); ABS Neutrophils 4.5 10^3/ul (1.5-7.7); Eosinophil % 3.9 %; Hematocrit 32 % (35-47); Hemoglobin 10.5 g/dL (12.0-16.0); Lymphocyte % 10.3 %; Mean Corpuscular HGB Conc 33 g/dL (31-36); Mean Corpuscular Hemoglobin 30 pg (27-31); Mean Corpuscular Volume 90 fL (80-97); Mean Platelet Volume 7.9 fL (7.4-10.4); Platelet Count 242 10^3/uL (150-450); Red Cell Distribution Width 14 % (10-15)
[2021-11-30 05:53] LABS: Calcium 9.3 mg/dL (8.6-10.3); Potassium 4.4 mmol/L (3.5-5.0); eGFR CKD-EPI 95.1 (>60)
[2021-11-30] MEDS: Cholecalciferol (VIT D3) 1,000 unit TAB PO SCH (09:22)
[2021-11-30] MEDS: Pentoxifylline CR 400 mg TAB 400 MG PO SCH (09:23)
[2021-11-30] MEDS: Vitamin THERAPEUTIC TAB PO SCH (10:35)
[2021-11-30] MEDS ORDERED: Gadoteridol (CONTRAST) 279.3 MG/ML 10 ML IV ONE (17:05)
[2021-12-01] MEDS: Heparin 5000 UNITS/ML 1 mL VIAL SUBCUT SCH ×3 (05:34→22:05)
[2021-12-01 06:11] LABS: ABS Eosinophils 0.2 10^3/ul (0-0.6); ABS Lymphocytes 0.6 10^3/ul (1.0-4.8); ABS Monocytes 0.5 10^3/ul (0-0.8); ABS Neutrophils 3.7 10^3/ul (1.5-7.7); Eosinophil % 4.3 %; Hematocrit 32 % (35-47); Hemoglobin 10.7 g/dL (12.0-16.0); Lymphocyte % 12.8 %; Mean Corpuscular HGB Conc 34 g/dL (31-36); Mean Corpuscular Hemoglobin 30 pg (27-31); Mean Corpuscular Volume 90 fL (80-97); Mean Platelet Volume 8.1 fL (7.4-10.4); Platelet Count 239 10^3/uL (150-450); Red Blood Count 3.54 10^6 /uL (3.70-4.87); Red Cell Distribution Width 14 % (10-15); White Blood Count 5.1 10^3/uL (3.5-10.8)
[2021-12-01 06:37] LABS: Calcium 9.2 mg/dL (8.6-10.3); Magnesium 1.5 mg/dL (1.9-2.7); Potassium 4.3 mmol/L (3.5-5.0); eGFR CKD-EPI 101.7 (>60)
[2021-12-01] MEDS: Pentoxifylline CR 400 mg TAB 400 MG PO SCH (09:21)
[2021-12-01] MEDS: Cholecalciferol (VIT D3) 1,000 unit TAB PO SCH (09:21)
[2021-12-01] MEDS ORDERED: Iodixanol (CONTRAST) 320 MG/ML 100 ML SDV IV ONE (11:41)
[2021-12-01] MEDS: Vitamin THERAPEUTIC TAB PO SCH (11:51)
[2021-12-01 16:17] LABS: Albumin 3.2 g/dL (3.4-4.7); Albumin/Globulin Ratio 1.08; Gamma Globulin 0.7 g/dL (0.6-1.6); Total Protein(PEP) 6.1 g/dL (6.3 - 7.9)
[2021-12-01] MEDS ORDERED: Magnesium Sulfate 2 gm BAG 2 GM/50 ML BAG IVPB ONE (17:27)
[2021-12-02 06:12] LABS: ABS Eosinophils 0.3 10^3/ul (0-0.6); ABS Lymphocytes 0.6 10^3/ul (1.0-4.8); ABS Monocytes 0.6 10^3/ul (0-0.8); ABS Neutrophils 4.6 10^3/ul (1.5-7.7); Eosinophil % 5.3 %; Hematocrit 32 % (35-47); Hemoglobin 10.6 g/dL (12.0-16.0); Lymphocyte % 9.2 %; Mean Corpuscular HGB Conc 33 g/dL (31-36); Mean Corpuscular Hemoglobin 29 pg (27-31); Mean Corpuscular Volume 89 fL (80-97); Mean Platelet Volume 8.1 fL (7.4-10.4); Nucleated Red Blood Cells % 0.1; Platelet Count 234 10^3/uL (150-450); Red Blood Count 3.59 10^6 /uL (3.70-4.87); Red Cell Distribution Width 14 % (10-15); White Blood Count 6.1 10^3/uL (3.5-10.8)
[2021-12-02 06:27] LABS: Potassium 4.3 mmol/L (3.5-5.0); eGFR CKD-EPI 100.2 (>60)
[2021-12-02] MEDS: Heparin 5000 UNITS/ML 1 mL VIAL SUBCUT SCH ×3 (08:31→23:16)
[2021-12-02] MEDS: Pentoxifylline CR 400 mg TAB 400 MG PO SCH (08:32)
[2021-12-02] MEDS: Cholecalciferol (VIT D3) 1,000 unit TAB PO SCH (08:32)
[2021-12-02] MEDS: Vitamin THERAPEUTIC TAB PO SCH (08:32)
[2021-12-02 09:03] LABS: Rapid COVID-19 Molecular Undetected (Undetected)
[2021-12-02 10:20] LABS: INR 1.04 (0.86-1.15)
[2021-12-02 13:46] LABS: Body Fluid WBC 382 /mcL
[2021-12-02 14:43] LABS: Osmolality Serum 269 mOsm/kg (275-295)
[2021-12-02 15:17] LABS: Body Fluid Mono 17 %; Body Fluid Other Cells 9; Body Fluid Total Cells Counted 200
[2021-12-02 17:15] LABS: Body Fluid Appearance Cloudy; Body Fluid Color Yellow
[2021-12-02 17:16] LABS: Body Fluid Source Pleural Fluid
[2021-12-03 05:21] LABS: ABS Eosinophils 0.3 10^3/ul (0-0.6); ABS Lymphocytes 0.5 10^3/ul (1.0-4.8); ABS Monocytes 0.6 10^3/ul (0-0.8); Eosinophil % 4.2 %; Hematocrit 32 % (35-47); Hemoglobin 10.7 g/dL (12.0-16.0); Lymphocyte % 7.7 %; Mean Corpuscular HGB Conc 34 g/dL (31-36); Mean Corpuscular Hemoglobin 30 pg (27-31); Mean Corpuscular Volume 89 fL (80-97); Mean Platelet Volume 8.1 fL (7.4-10.4); Nucleated Red Blood Cells % 0.4; Platelet Count 225 10^3/uL (150-450); Red Blood Count 3.59 10^6 /uL (3.70-4.87); Red Cell Distribution Width 14 % (10-15); White Blood Count 6.4 10^3/uL (3.5-10.8)
[2021-12-03 05:44] LABS: Calcium 9.3 mg/dL (8.6-10.3); Magnesium 1.7 mg/dL (1.9-2.7); eGFR CKD-EPI 98.4 (>60)
[2021-12-03] MEDS: Heparin 5000 UNITS/ML 1 mL VIAL SUBCUT SCH ×3 (07:41→20:00)
[2021-12-03] MEDS ORDERED: Magnesium Sulfate 2 gm BAG 2 GM/50 ML BAG IVPB ONE (08:16)
[2021-12-03] MEDS: Vitamin THERAPEUTIC TAB PO SCH (08:28)
[2021-12-03] MEDS: Cholecalciferol (VIT D3) 1,000 unit TAB PO SCH (08:28)
[2021-12-03] MEDS: Pentoxifylline CR 400 mg TAB 400 MG PO SCH (08:28)
[2021-12-03] MEDS ORDERED: Furosemide 40 mg/4 ml IV VIAL IV SCH (10:00)
[2021-12-03 13:44] LABS: Glucose, BF 151 mg/dL
[2021-12-03 13:51] LABS: Fluid Type, Protein, Total PLEURAL
[2021-12-03 13:53] LABS: Albumin, BF 1.5 g/dL; Fluid Type, Albumin PLEURAL; Lactate Dehydrogenase, BF 63 U/L
[2021-12-03 19:17] LABS: Urine Osmo 226 mOsm/kg (150-1150)
[2021-12-04] MEDS: Heparin 5000 UNITS/ML 1 mL VIAL SUBCUT SCH ×3 (06:12→20:42)
[2021-12-04] MEDS: Cholecalciferol (VIT D3) 1,000 unit TAB PO SCH (08:37)
[2021-12-04] MEDS: Vitamin THERAPEUTIC TAB PO SCH (08:38)
[2021-12-04] MEDS: Pentoxifylline CR 400 mg TAB 400 MG PO SCH (08:39)
[2021-12-04 08:57] LABS: ABS Eosinophils 0.3 10^3/ul (0-0.6); ABS Lymphocytes 0.4 10^3/ul (1.0-4.8); ABS Monocytes 0.7 10^3/ul (0-0.8); ABS Neutrophils 3.9 10^3/ul (1.5-7.7); Eosinophil % 6.3 %; Hematocrit 33 % (35-47); Lymphocyte % 7.1 %; Mean Corpuscular HGB Conc 33 g/dL (31-36); Mean Corpuscular Hemoglobin 30 pg (27-31); Mean Corpuscular Volume 89 fL (80-97); Mean Platelet Volume 7.8 fL (7.4-10.4); Nucleated Red Blood Cells % 0.1; Platelet Count 229 10^3/uL (150-450); Red Blood Count 3.73 10^6 /uL (3.70-4.87); Red Cell Distribution Width 14 % (10-15); White Blood Count 5.4 10^3/uL (3.5-10.8)
[2021-12-04 09:26] LABS: Calcium 9.5 mg/dL (8.6-10.3); Magnesium 1.7 mg/dL (1.9-2.7); Potassium 4.6 mmol/L (3.5-5.0); eGFR CKD-EPI 99.3 (>60)
[2021-12-04] MEDS ORDERED: Magnesium Sulfate 2 gm BAG 2 GM/50 ML BAG IVPB ONE (09:48)
[2021-12-04] MEDS ORDERED: Iodixanol (CONTRAST) 320 MG/ML 100 ML SDV IV ONE (12:40)
[2021-12-04] MEDS ORDERED: Dextrose 50% Syringe 50 ml 25 GM/50 ML SYRINGE IV PUSH PRN (12:51)
[2021-12-04 16:11] LABS: Total Protein 6.1 g/dL (6.4-8.9)
[2021-12-05] MEDS: Heparin 5000 UNITS/ML 1 mL VIAL SUBCUT SCH ×3 (05:43→22:55)
[2021-12-05 06:49] LABS: Calcium 9.3 mg/dL (8.6-10.3); Magnesium 1.9 mg/dL (1.9-2.7); Potassium 4.9 mmol/L (3.5-5.0); eGFR CKD-EPI 97.9 (>60)
[2021-12-05] MEDS: Vitamin THERAPEUTIC TAB PO SCH (08:56)
[2021-12-05] MEDS: Cholecalciferol (VIT D3) 1,000 unit TAB PO SCH (08:56)
[2021-12-05] MEDS: Pentoxifylline CR 400 mg TAB 400 MG PO SCH (08:58)
[2021-12-06] MEDS: Heparin 5000 UNITS/ML 1 mL VIAL SUBCUT SCH ×3 (06:31→20:42)
[2021-12-06] MEDS: Cholecalciferol (VIT D3) 1,000 unit TAB PO SCH (08:30)
[2021-12-06] MEDS: Vitamin THERAPEUTIC TAB PO SCH (08:31)
[2021-12-06] MEDS: Pentoxifylline CR 400 mg TAB 400 MG PO SCH (08:31)
[2021-12-06 10:14] LABS: Rapid COVID-19 Molecular Undetected (Undetected)
[2021-12-07] MEDS: Heparin 5000 UNITS/ML 1 mL VIAL SUBCUT SCH (05:16)
[2021-12-07] MEDS: Cholecalciferol (VIT D3) 1,000 unit TAB PO SCH (08:12)
[2021-12-07] MEDS: Pentoxifylline CR 400 mg TAB 400 MG PO SCH (08:18)
[2021-12-07] MEDS: Vitamin THERAPEUTIC TAB PO SCH (08:21)
[2021-12-07 11:45] VITALS: BP 111/63
== END 2021-12-07 13:10 | DRG 74 ==
LOC: EDHOLD 15:59 → ED 15:59 → EDHOLD 11-28 14:22 → MED 11-28 14:57 → SUATTDRO 11-29 17:00
PROVIDERS: ADMIT Internal Medicine; ATTEND Internal Medicine